=== PATIENT | female | born 1985 | race African-American/Black ===

== ENCOUNTER 2018-04-14 08:25 | Emergency (ER) | payer SELFPAY ==
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
== END 2018-04-14 11:00 | disposition home or self-care (01) ==
LOC: ER 08:25
DX: S39.012A Strain of muscle, fascia and tendon of lower back, initial encounter (principal); S16.1XXA Strain of muscle, fascia and tendon at neck level, initial encounter; V43.52XA Car driver injured in collision with other type car in traffic accident, initial encounter; Y93.89 Activity, other specified; Y92.410 Unspecified street and highway as the place of occurrence of the external cause; S00.90XA Unspecified superficial injury of unspecified part of head, initial encounter; I10 Essential (primary) hypertension
CPT/HCPCS: 70450; 72040; 72070; 72100; 99284